=== PATIENT | female | born 1985 | race Caucasian/White ===

== ENCOUNTER 2017-12-10 19:10 | Emergency (ER) | payer MEDICAID ==
[~2017-12-10] VITALS: Ht 165.1 cm; Wt 125.0 kg
[2017-12-10] MEDS ORDERED: DICYCLOMINE HCL 10MG CAPSULE PO ONE (23:15)
[2017-12-10 23:30] LABS: CLARITY URINE CLEAR (CLEAR); COLOR URINE YELLOW (YELLOW); KETONES URINE NEGATIVE (NEGATIVE); LEUKOCYTE ESTERASE URINE NEGATIVE (NEGATIVE); NITRITE URINE NEGATIVE (NEGATIVE); OCCULT BLOOD URINE NEGATIVE (NEGATIVE); PH URINE 5.5 (4.5-8.0); PROTEIN URINE NEGATIVE (NEGATIVE); SPECIFIC GRAVITY URINE 1.007 (1.005-1.030); UROBILINOGEN URINE 0.2 E.U./dL (0.2-1.0)
[2017-12-11 00:23] LABS: BASOPHILS % 0.8 % (0.0-2.0); EOSINOPHILS % 2.5 % (0.0-5.0); HEMATOCRIT. 38.6 % (36.0-48.0); HEMOGLOBIN. 13.2 g/dL (12.0-16.0); LYMPHOCYTES % 36.2 % (20.0-50.0); MEAN CORPUSCULAR HEMOGLOBIN 29.3 pg (28.0-32.0); MEAN CORPUSCULAR VOLUME 85.9 fL (81.0-99.0); MEAN PLATELET VOLUME 8.5 fl (7.4-10.4); MONOCYTES % 4.4 % (2.0-8.0); NEUTROPHILS % 56.1 % (40.0-76.0); PLATELET 314 x1000/uL (130-400); RED BLOOD CELL COUNT 4.49 mill/uL (4.2-5.4); RED CELL DISTRIBUTION WIDTH 13.8 % (11.6-14.6)
[2017-12-11 00:28] LABS: CHLORIDE 105 mEq/L (98-107)
[2017-12-11 00:29] LABS: PROTHROMBIN TIME 10.6 sec (9.4-11.6)
[2017-12-11 00:30] LABS: HCG SCREEN NEGATIVE
[2017-12-11 02:47] VITALS: BP 125/66
== END 2017-12-11 02:47 | disposition home or self-care (01) ==
LOC: ER 19:29
DX: R10.13 Epigastric pain (principal); K62.5 Hemorrhage of anus and rectum; D72.829 Elevated white blood cell count, unspecified
CPT/HCPCS: 36415; 80053; 81003; 83690; 84703; 85025; 85610; 99284

== ENCOUNTER 2018-05-27 11:57 | Emergency (ER) | payer MEDICAID ==
[~2018-05-27] VITALS: Ht 167.6 cm; Wt 90.0 kg
[2018-05-27] MEDS ORDERED: HYDROCODONE/ACETAMINOPHEN 5/325MG TABLET PO ONE (14:00)
[2018-05-27] MEDS ORDERED: TETANUS AND DIPHTHERIA TOX/PF 0.5ML SYR (ADULT) IM ONE (14:15)
[2018-05-27] MEDS ORDERED: BACITRACIN ZINC OINT UDPKT TOP ONE (14:15)
[2018-05-27 16:29] VITALS: BP 148/91
== END 2018-05-27 16:32 | disposition home or self-care (01) ==
LOC: ER 12:03
DX: T23.122A Burn of first degree of single left finger (nail) except thumb, initial encounter (principal); T31.0 Burns involving less than 10% of body surface; T79.9XXA Unspecified early complication of trauma, initial encounter; Z87.440 Personal history of urinary (tract) infections
CPT/HCPCS: 90471; 90714; 90715; 99283

== ENCOUNTER 2020-05-30 10:12 | Emergency (ER) | payer MEDICAID ==
[~2020-05-30] VITALS: Ht 165.1 cm; Wt 90.7 kg
[2020-05-30 11:17] VITALS: BP 119/65
== END 2020-05-30 12:06 | disposition home or self-care (01) ==
LOC: ER 10:12
DX: U07.1 COVID-19 (principal); R05 Cough
CPT/HCPCS: 71045; 99283

== ENCOUNTER 2021-05-15 23:41 | Emergency (ER) | payer MEDICAID ==
[~2021-05-15] VITALS: Ht 165.1 cm; Wt 122.0 kg
[2021-05-16 08:16] VITALS: BP 131/82
== END 2021-05-16 08:16 | disposition home or self-care (01) ==
LOC: ER 23:41
DX: R05.9 Cough, unspecified (principal); M79.18 Myalgia, other site; J02.9 Acute pharyngitis, unspecified; Z20.822 Contact with and (suspected) exposure to COVID-19
CPT/HCPCS: 99283; C9803; U0003; U0005

== ENCOUNTER 2023-05-05 07:12 | Emergency (ER) | payer MEDICAID ==
[~2023-05-05] VITALS: Ht 175.3 cm; Wt 113.0 kg
[2023-05-05 07:27] VITALS: O2SAT 99
[2023-05-05] MEDS ORDERED: METH-653 MT (09:54)
[2023-05-05] MEDS ORDERED: IBUP-2029 MT (09:54)
[2023-05-05] MEDS ORDERED: KETOROLAC 30MG/ML VIAL IM ONE (10:00)
[2023-05-05] MEDS ORDERED: METHOCARBAMOL 500MG TABLET PO ONE (10:00)
[2023-05-05 10:47] VITALS: BP 156/99
[2023-05-05 10:48] VITALS: PULSE 70; RESP 16; TEMP 97.7
== END 2023-05-05 10:50 | disposition home or self-care (01) ==
LOC: ER 07:28
DX: S46.911A Strain of unspecified muscle, fascia and tendon at shoulder and upper arm level, right arm, initial encounter (principal); X58.XXXA Exposure to other specified factors, initial encounter; Y93.89 Activity, other specified; Y92.89 Other specified places as the place of occurrence of the external cause; Y99.8 Other external cause status
CPT/HCPCS: 99283